=== PATIENT | male | born 1995 | race Caucasian/White ===

== ENCOUNTER 2016-10-08 10:54 | Emergency (ER) | payer OTHER ==
[2016-10-08 11:17] VITALS: BMI 22.9
[2016-10-08] MEDS ORDERED: NAPROXEN 500 MG TABLET (FP) PO ONE (11:41)
[2016-10-08] MEDS ORDERED: NAPROXEN 500 MG TABLET (FP) ONE (11:45)
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
[2016-10-08 14:30] VITALS: BP 124/84; PULSE 82; TEMP 98.4
== END 2016-10-08 14:29 | disposition home or self-care (01) ==
LOC: JER 10:54
DX: M54.9 Dorsalgia, unspecified (principal); M54.2 Cervicalgia; M79.645 Pain in left finger(s); J45.909 Unspecified asthma, uncomplicated; F90.9 Attention-deficit hyperactivity disorder, unspecified type; F41.9 Anxiety disorder, unspecified; F32.9 Major depressive disorder, single episode, unspecified; F25.9 Schizoaffective disorder, unspecified; F17.210 Nicotine dependence, cigarettes, uncomplicated; Y04.2XXA Assault by strike against or bumped into by another person, initial encounter; Y93.89 Activity, other specified; Y92.89 Other specified places as the place of occurrence of the external cause
CPT/HCPCS: 70450-TC; 71020-TC; 72125-TC; 72128-TC; 73140-TC-LT; 99284-25